=== PATIENT | male | born 1985 | race Caucasian/White ===

== ENCOUNTER 2018-05-04 19:37 | Emergency (ER) | payer BC ==
[2018-05-04 20:03] VITALS: TEMP 98.5
[2018-05-04] MEDS ORDERED: IPRATROPIUM-ALBUTEROL 3 ML NEB INHALATION STA (20:18)
[2018-05-04] MEDS ORDERED: methylPREDNISolone SOD SUCCI 125 MG/2 ML VIAL IV STA (20:18)
[2018-05-04] MEDS ORDERED: MAGNESIUM SULFATE-D5W PMX 1 GM in DEXTROSE/WATER 1 100ML.BAG IVPB ONE (20:19)
--- NOTE | 2018-05-04 20:33 | ED ---
SOB HPI - General Source: patient, RN notes reviewed Mode of arrival: ambulatory Limitations: no limitations - History of Present Illness MD Complaint: shortness of breath <Chet Palomares - Last Filed: 05/04/18 21:15> <Andrew Schmitz - Last Filed: 05/04/18 22:51> - General Chief Complaint: Shortness of Breath Stated Complaint: SOB Time Seen by Provider: 05/04/18 20:10 - History of Present Illness Initial Comments: This is a 32-year-old male history of childhood asthma states he had shortness of breath or past 3 days. He was seen in outpatient clinic and also later in another clinic and was given several shots of steroids over last several days without resolution. Patient does admit he is a smoker he denies any fevers chills nausea vomiting sweats or other symptoms he does state he has a history of frequent tonsillitis but does not believe that CK is at this time. He denies any chest pain or other symptoms at this time. (Chet Palomares) - Related Data Home Medications Medication Instructions Recorded Confirmed Dextroamphetamine/Amphetamine 30 mg PO DAILY 05/04/18 05/04/18 [Adderall] Imitrex 1 tab PO DAILY PRN 05/04/18 05/04/18 Previous Rx's Medication Instructions Recorded Albuterol Inhaler [Ventolin Hfa 1 - 2 puff INHALATION Q6HR PRN #1 05/04/18 Inhaler] inhaler predniSONE 60 mg PO DAILY #30 tab 05/04/18 Allergies Allergy/AdvReac Type Severity Reaction Status Date / Time amoxicillin Allergy Anaphylaxis Verified 05/04/18 20:23 Review of Systems ROS Other: All systems not noted in ROS Statement are negative. <hCet Palomares - Last Filed: 05/04/18 21:15> ROS Other: All systems not noted in ROS Statement are negative. <Andrew Schmitz - Last Filed: 05/04/18 22:51> ROS Statement: Those systems with pertinent positive or pertinent negative responses have been documented in the HPI. Past Medical History Past Medical History: No Reported History History of Any Multi-Drug Resistant Organisms: None Reported Past Surgical History: No Surgical Hx Reported Past Psychological History: No Psychological Hx Reported Smoking Status: Current every day smoker Past Alcohol Use History: Occasional Past Drug Use History: None Reported <Chet Palomares - Last Filed: 05/04/18 21:15> General Exam Limitations: no limitations General appearance: alert, anxious, in distress Head exam: Present: atraumatic, normocephalic, normal inspection Eye exam: Present: normal appearance, PERRL, EOMI. Absent: scleral icterus, conjunctival injection, periorbital swelling ENT exam: Present: normal exam, mucous membranes moist Neck exam: Present: normal inspection. Absent: tenderness, meningismus, lymphadenopathy Respiratory exam: Present: respiratory distress, wheezes, decreased breath sounds. Absent: rales, rhonchi, stridor Cardiovascular Exam: Present: regular rate, normal rhythm, normal heart sounds. Absent: systolic murmur, diastolic murmur, rubs, gallop, clicks GI/Abdominal exam: Present: soft, normal bowel sounds. Absent: distended, tenderness, guarding, rebound, rigid Extremities exam: Present: normal inspection, full ROM, normal capillary refill. Absent: tenderness, pedal edema, joint swelling, calf tenderness Back exam: Present: normal inspection Neurological exam: Present: alert, oriented X3, CN II-XII intact Psychiatric exam: Present: normal affect, normal mood Skin exam: Present: warm, dry, intact, normal color. Absent: rash <hCet Palomares - Last Filed: 05/04/18 21:15> <Andrew Schmitz - Last Filed: 05/04/18 22:51> - General Exam Comments Initial Comments: This is a well-developed well-nourished awake alert oriented times 3 male (Chet Palomares) Course <Chet Palomares - Last Filed: 05/04/18 21:15> <Andrew Schmitz - Last Filed: 05/04/18 22:51> Vital Signs 05/04/18 05/04/18 05/04/18 20:00 20:32 20:38 Temperature 98.5 F Pulse Rate 88 84 96 Respiratory 18 Rate Blood Pressure 140/86 O2 Sat by Pulse 98 Oximetry 05/04/18 05/04/18 21:31 22:28 Temperature Pulse Rate 72 77 Respiratory 26 H 20 Rate Blood Pressure 126/59 O2 Sat by Pulse 98 98 Oximetry - Reevaluation(s) Reevaluation #1: 05/04/18 21:15 The patient's care will be endorsed to Dr. Schmitz at our shift change. (Chet Palomares) Medical Decision Making - Lab Data Result diagrams: 05/04/18 20:40 05/04/18 20:40 - EKG Data -: EKG Interpreted by Me EKG shows normal: sinus rhythm (Sinus rhythm rate of 84. Interval 140 QRS duration 96 QT since QTC 364/4:30 she'll PVCs.) <Chet Palomares - Last Filed: 05/04/18 21:15> - Lab Data Result diagrams: 05/04/18 20:40 05/04/18 20:40 <Andrew Schmitz - Last Filed: 05/04/18 22:51> - Medical Decision Making I receive this patient has a sign out. I have reevaluated him and at this point his wheezing is only minimal. He is able speak in full sentences and the respiratory pattern is normal without any distress at all. The patient states that he feels much better and would like to go home. I discussed further care and follow-up as well as return parameters. (Andrew Schmitz) - Lab Data Lab Results 05/04/18 05/04/18 05/04/18 Range/Units 20:40 20:40 20:40 WBC 14.9 H (3.8-10.6) k/uL RBC 4.76 (4.30-5.90) m/uL Hgb 14.1 (13.0-17.5) gm/dL Hct 41.6 (39.0-53.0) % MCV 87.3 (80.0-100.0) fL MCH 29.6 (25.0-35.0) pg MCHC 33.8 (31.0-37.0) g/dL RDW 13.3 (11.5-15.5) % Plt Count 247 (150-450) k/uL Neutrophils % 64 % Lymphocytes % 24 % Monocytes % 7 % Eosinophils % 4 % Basophils % 0 % Neutrophils # 9.5 H (1.3-7.7) k/uL Lymphocytes # 3.5 (1.0-4.8) k/uL Monocytes # 1.1 H (0-1.0) k/uL Eosinophils # 0.5 (0-0.7) k/uL Basophils # 0.0 (0-0.2) k/uL PT (9.0-12.0) sec INR (<1.2) APTT (22.0-30.0) sec D-Dimer (<0.60) mg/L FEU Sodium 142 (137-145) mmol/L Potassium 4.0 (3.5-5.1) mmol/L Chloride 105 (98-107) mmol/L Carbon Dioxide 24 (22-30) mmol/L Anion Gap 13 mmol/L BUN 23 H (9-20) mg/dL Creatinine 0.91 (0.66-1.25) mg/dL Est GFR (CKD-EPI)AfAm >90 (>60 ml/min/1.73 sqM) Est GFR (CKD-EPI)NonAf >90 (>60 ml/min/1.73 sqM) Glucose 83 (74-99) mg/dL Plasma Lactic Acid Marcus (0.7-2.0) mmol/L Calcium 8.9 (8.4-10.2) mg/dL Magnesium 1.9 (1.6-2.3) mg/dL Total Bilirubin 0.4 (0.2-1.3) mg/dL AST 34 (17-59) U/L ALT 42 (21-72) U/L Alkaline Phosphatase 72 (38-126) U/L Total Creatine Kinase 95 (55-170) U/L CK-MB (CK-2) 0.8 (0.0-2.4) ng/mL CK-MB (CK-2) Rel Index 0.8 Troponin I <0.012 (0.000-0.034) ng/mL NT-Pro-B Natriuret Pep pg/mL Total Protein 6.8 (6.3-8.2) g/dL Albumin 3.9 (3.5-5.0) g/dL 05/04/18 05/04/18 05/04/18 Range/Units 20:40 20:40 20:40 WBC (3.8-10.6) k/uL RBC (4.30-5.90) m/uL Hgb (13.0-17.5) gm/dL Hct (39.0-53.0) % MCV (80.0-100.0) fL MCH (25.0-35.0) pg MCHC (31.0-37.0) g/dL RDW (11.5-15.5) % Plt Count (150-450) k/uL Neutrophils % % Lymphocytes % % Monocytes % % Eosinophils % % Basophils % % Neutrophils # (1.3-7.7) k/uL Lymphocytes # (1.0-4.8) k/uL Monocytes # (0-1.0) k/uL Eosinophils # (0-0.7) k/uL Basophils # (0-0.2) k/uL PT 10.1 (9.0-12.0) sec INR 1.0 (<1.2) APTT 22.9 (22.0-30.0) sec D-Dimer 0.24 (<0.60) mg/L FEU Sodium (137-145) mmol/L Potassium (3.5-5.1) mmol/L Chloride (98-107) mmol/L Carbon Dioxide (22-30) mmol/L Anion Gap mmol/L BUN (9-20) mg/dL Creatinine (0.66-1.25) mg/dL Est GFR (CKD-EPI)AfAm (>60 ml/min/1.73 sqM) Est GFR (CKD-EPI)NonAf (>60 ml/min/1.73 sqM) Glucose (74-99) mg/dL Plasma Lactic Acid Marcus 1.1 (0.7-2.0) mmol/L Calcium (8.4-10.2) mg/dL Magnesium (1.6-2.3) mg/dL Total Bilirubin (0.2-1.3) mg/dL AST (17-59) U/L ALT (21-72) U/L Alkaline Phosphatase (38-126) U/L Total Creatine Kinase (55-170) U/L CK-MB (CK-2) (0.0-2.4) ng/mL CK-MB (CK-2) Rel Index Troponin I (0.000-0.034) ng/mL NT-Pro-B Natriuret Pep 105 pg/mL Total Protein (6.3-8.2) g/dL Albumin (3.5-5.0) g/dL Disposition <Chet Palomares - Last Filed: 05/04/18 21:15> Is patient prescribed a controlled substance at d/c from ED?: No <Andrew Schmitz - Last Filed: 05/04/18 22:51> Clinical Impression: Asthma exacerbation Disposition: HOME SELF-CARE Condition: Good Instructions: Asthma (ED) Prescriptions: Albuterol Inhaler [Ventolin Hfa Inhaler] 1 - 2 puff INHALATION Q6HR PRN #1 inhaler PRN Reason: Wheezing predniSONE 60 mg PO DAILY #30 tab Referrals: None,Stated [Primary Care Provider] - 1-2 days Juliet Menjivar MD [REFERRING] - 1-2 days
[2018-05-04 20:55] LABS: Basophils % (A) 0 %; Eosinophils # (A) 0.5 k/uL (0-0.7); Eosinophils % (A) 4 %; HCT 41.6 % (39.0-53.0); HGB 14.1 gm/dL (13.0-17.5); Lymphocytes # (A) 3.5 k/uL (1.0-4.8); Lymphocytes % (A) 24 %; MCH 29.6 pg (25.0-35.0); MCHC 33.8 g/dL (31.0-37.0); MCV 87.3 fL (80.0-100.0); Mean Platelet Volume 7.6; Monocytes # (A) 1.1 k/uL (0-1.0); Monocytes % (A) 7 %; Neutrophils # (A) 9.5 k/uL (1.3-7.7); Neutrophils % (A) 64 %; Platelet Count 247 k/uL (150-450); RBC 4.76 m/uL (4.30-5.90); RDW 13.3 % (11.5-15.5); WBC 14.9 k/uL (3.8-10.6)
[2018-05-04 21:05] LABS: ALT 42 U/L (21-72); AST 34 U/L (17-59); Albumin 3.9 g/dL (3.5-5.0); Alkaline Phosphatase 72 U/L (38-126); Anion Gap 13 mmol/L; Blood Urea Nitrogen 23 mg/dL (9-20); Calcium 8.9 mg/dL (8.4-10.2); Carbon Dioxide 24 mmol/L (22-30); Chloride 105 mmol/L (98-107); Glucose 83 mg/dL (74-99); Magnesium 1.9 mg/dL (1.6-2.3); Sodium 142 mmol/L (137-145); Total Bilirubin 0.4 mg/dL (0.2-1.3); Total Protein 6.8 g/dL (6.3-8.2)
[2018-05-04 21:08] LABS: D-Dimer 0.24 mg/L FEU (<0.60); Partial Thromboplastin Time 22.9 sec (22.0-30.0); Prothrombin Time 10.1 sec (9.0-12.0)
[2018-05-04 21:21] LABS: Creatine Kinase 95 U/L (55-170)
[2018-05-04 21:34] LABS: Creatine Kinase MB 0.8 ng/mL (0.0-2.4); Troponin I <0.012 ng/mL (0.000-0.034)
[2018-05-04 23:09] VITALS: BP 121/70; PULSE 95; RESP 16
== END 2018-05-04 23:10 | disposition home or self-care (01) ==
LOC: EC 19:37
DX: J45.901 Unspecified asthma with (acute) exacerbation (principal); F17.200 Nicotine dependence, unspecified, uncomplicated; Z79.899 Other long term (current) drug therapy; Z88.0 Allergy status to penicillin
CPT/HCPCS: 36415; 94640; 93005; 85379; 83880; 80053; 82550; 82553; 83605; 83735; 84484; 85025; 85610; 85730; 87040; 99285; 96365; 96366; 96375; J2930; J3475

== ENCOUNTER 2019-11-07 23:14 | Emergency (ER) | payer BC ==
[2019-11-07] MEDS ORDERED: DEXAMETHASONE SOD PHOSPHATE 10 MG/ML 1 ML VIAL IM STA (23:27)
[2019-11-07] MEDS ORDERED: IPRATROPIUM 0.5 MG/2.5 ML NEBU INHALATION STA (23:27)
[2019-11-07] MEDS ORDERED: KETOROLAC 30 MG/ML 1 ML VIAL IM STA (23:27)
[2019-11-07] MEDS ORDERED: guaiFENesin-DM 600/30MG 1 EACH TAB.ER.12H PO ONE (23:30)
--- NOTE | 2019-11-07 23:58 | XR ---
EXAMINATION TYPE: XR chest 2V DATE OF EXAM: 11/07/2019 COMPARISON: 05/04/2018 HISTORY: Cough TECHNIQUE: FINDINGS: Heart and mediastinum appear normal. Lungs are clear of consolidation. There are no hilar m asses. Pulmonary vascularity is normal. Bony thorax appears normal. IMPRESSION: Normal chest. No change.
--- NOTE | 2019-11-08 00:20 | ED ---
URI HPI - General Chief Complaint: Upper Respiratory Infection Stated Complaint: Diff Breathing Time Seen by Provider: 11/07/19 23:19 Source: patient Mode of arrival: ambulatory Limitations: no limitations - History of Present Illness Initial Comments: 34-year-old male patient presents to the emergency department today for evaluation of sore throat, cough, shortness of breath. Patient states his been sick for the last 2 days. Patient states he has painful swallowing. States it feels like his tonsils are swollen. He denies any unilateral pain. Denies fevers but states he has been chilled. States he has had a cough. Cough is nonproductive. States he has a history of asthma. He denies any nasal congestion or drainage. Patient denies any recent rash, chest pain, abdominal pain, nausea, vomiting, diarrhea, constipation, back pain, numbness, tingling, dizziness, weakness, hematuria, dysuria, urinary urgency, urinary frequency, headache, visual changes, or any other complaints. - Related Data Home Medications Medication Instructions Recorded Confirmed Dextroamphetamine/Amphetamine 30 mg PO DAILY 05/04/18 05/04/18 [Adderall] Imitrex 1 tab PO DAILY PRN 05/04/18 05/04/18 Previous Rx's Medication Instructions Recorded Albuterol Inhaler [Ventolin Hfa 1 - 2 puff INHALATION Q6HR PRN #1 05/04/18 Inhaler] inhaler predniSONE 60 mg PO DAILY #30 tab 05/04/18 Albuterol Sulfate [Proair Hfa] 1 - 2 puff INHALATION Q6HR PRN #1 11/08/19 inhaler guaiFENesin-DM 600/30MG [Mucinex 2 each PO Q12HR #20 tab.er.12h 11/08/19 Dm] predniSONE 50 mg PO DAILY #5 tablet 11/08/19 Allergies Allergy/AdvReac Type Severity Reaction Status Date / Time amoxicillin Allergy Anaphylaxis Verified 11/07/19 23:17 Review of Systems ROS Statement: Those systems with pertinent positive or pertinent negative responses have been documented in the HPI. ROS Other: All systems not noted in ROS Statement are negative. Past Medical History Past Medical History: No Reported History History of Any Multi-Drug Resistant Organisms: None Reported Past Surgical History: No Surgical Hx Reported Past Psychological History: No Psychological Hx Reported Smoking Status: Former smoker Past Alcohol Use History: Occasional Past Drug Use History: None Reported General Exam Limitations: no limitations General appearance: alert, in no apparent distress, anxious, other (This is a well-developed, well-nourished adult male patient in no acute distress. Vital signs upon presentation are temperature 98.7F, pulse 96, respirations 20, blood pressure 141/95, pulse ox 97% on room air.) ENT exam: Present: mucous membranes moist. Absent: normal oropharynx (Pharyngeal erythema. No tonsillar exudate or swelling.) Respiratory exam: Present: wheezes (Faint expiratory wheezing noted in the posterior lung rosenberg.). Absent: normal lung sounds bilaterally, respiratory distress, rales, rhonchi, stridor Cardiovascular Exam: Present: regular rate, normal rhythm, normal heart sounds. Absent: systolic murmur, diastolic murmur, rubs, gallop, clicks GI/Abdominal exam: Present: soft, normal bowel sounds. Absent: distended, tenderness, guarding, rebound, rigid Neurological exam: Present: alert, oriented X3, CN II-XII intact Psychiatric exam: Present: normal affect, normal mood Skin exam: Present: warm, dry, intact, normal color. Absent: rash Course Vital Signs 11/07/19 11/07/19 11/07/19 23:15 23:50 23:58 Temperature 98.7 F Pulse Rate 96 96 88 Respiratory 20 Rate Blood Pressure 141/95 O2 Sat by Pulse 97 Oximetry 11/08/19 00:47 Temperature 97.9 F Pulse Rate 94 Respiratory 18 Rate Blood Pressure 135/69 O2 Sat by Pulse 99 Oximetry Medical Decision Making - Medical Decision Making 34-year-old male patient presents to the emergency department today for evaluation of cough, congestion, sore throat. Physical examination did reveal faint expiratory wheezing. Chest x-ray is unremarkable. Strep and influenza testing were negative. Patient was given steroids and anti-inflammatory medication. Also given Mucinex DM for control of cough. Symptoms are consistent with acute bronchitis and viral pharyngitis. He'll be discharged with prescriptions for prednisone, Mucinex, and Pro Air inhaler. He is instructed to follow-up with his primary care physician for recheck in 1-2 days. Return parameters were discussed in detail. He verbalizes understanding and agrees with this plan. - Lab Data Lab Results 11/07/19 Range/Units 23:25 Influenza Type A RNA Not Detected (Not Detectd) Influenza Type B (PCR) Not Detected (Not Detectd) Group A Strep Rapid Negative (Negative) - Radiology Data Radiology results: report reviewed, image reviewed Two-view x-ray of the chest is obtained. Report is reviewed in its entirety. Impression by Dr. Gooden meningismus normal chest. No change. Disposition Clinical Impression: Acute bronchitis, Viral pharyngitis Disposition: HOME SELF-CARE Condition: Good Instructions (If sedation given, give patient instructions): Pharyngitis (ED), Acute Bronchitis (ED) Additional Instructions: Take Tylenol Motrin for pain control. Use inhaler every 4-6 hours as needed for shortness of breath. Complete steroid prescription and full. Use Mucinex DM for control of cough. Follow-up through primary care physician for recheck in 1-2 days. Return to the emergency department immediately for any new, worsening, or concerning symptoms. Prescriptions: guaiFENesin-DM 600/30MG [Mucinex Dm] 2 each PO Q12HR #20 tab.er.12h predniSONE 50 mg PO DAILY #5 tablet Albuterol Sulfate [Proair Hfa] 1 - 2 puff INHALATION Q6HR PRN #1 inhaler PRN Reason: Shortness Of Breath Is patient prescribed a controlled substance at d/c from ED?: No Referrals: Lukas Huston MD [Primary Care Provider] - 1-2 days Time of Disposition: 00:19
[2019-11-08 00:52] VITALS: BP 135/69; PULSE 94; RESP 18; TEMP 97.9
== END 2019-11-08 00:47 | disposition home or self-care (01) ==
LOC: EC 23:14
DX: J20.9 Acute bronchitis, unspecified (principal); J02.9 Acute pharyngitis, unspecified; Z87.09 Personal history of other diseases of the respiratory system; Z87.891 Personal history of nicotine dependence; Z79.899 Other long term (current) drug therapy; Z88.0 Allergy status to penicillin
CPT/HCPCS: 94640; 87081; 87430; 87502; 71046; 99285; 96372 ×2; J1100; J1885

== ENCOUNTER 2019-11-10 13:45 | Emergency (ER) | payer BC ==
[2019-11-10 13:48] VITALS: TEMP 97.7
[2019-11-10] MEDS ORDERED: IPRATROPIUM-ALBUTEROL 3 ML NEB INHALATION STA (14:09)
[2019-11-10] MEDS ORDERED: methylPREDNISolone SOD SUCCI 125 MG/2 ML VIAL IV STA (14:19)
[2019-11-10 14:43] LABS: Basophils # (A) 0.1 k/uL (0-0.2); Basophils % (A) 0 %; Eosinophils # (A) 0.1 k/uL (0-0.7); Eosinophils % (A) 1 %; HCT 43.8 % (39.0-53.0); HGB 14.4 gm/dL (13.0-17.5); Lymphocytes # (A) 1.5 k/uL (1.0-4.8); Lymphocytes % (A) 9 %; MCH 28.8 pg (25.0-35.0); MCHC 32.9 g/dL (31.0-37.0); MCV 87.4 fL (80.0-100.0); Mean Platelet Volume 7.7; Monocytes # (A) 0.5 k/uL (0-1.0); Monocytes % (A) 3 %; Neutrophils # (A) 13.6 k/uL (1.3-7.7); Neutrophils % (A) 86 %; Platelet Count 327 k/uL (150-450); RBC 5.01 m/uL (4.30-5.90); RDW 13.4 % (11.5-15.5); WBC 15.8 k/uL (3.8-10.6)
[2019-11-10 14:51] LABS: AST 73 U/L (17-59); African American GFR (CKD) >90 (>60 ml/min/1.73 sqM); Albumin 4.4 g/dL (3.5-5.0); Alkaline Phosphatase 83 U/L (38-126); Anion Gap 17 mmol/L; Blood Urea Nitrogen 31 mg/dL (9-20); Calcium 9.7 mg/dL (8.4-10.2); Carbon Dioxide 16 mmol/L (22-30); Chloride 108 mmol/L (98-107); Glucose 179 mg/dL (74-99); Non-African American GFR(CKD) >90 (>60 ml/min/1.73 sqM); Potassium 3.2 mmol/L (3.5-5.1); Sodium 141 mmol/L (137-145); Total Bilirubin 0.4 mg/dL (0.2-1.3); Total Protein 7.7 g/dL (6.3-8.2)
--- NOTE | 2019-11-10 14:51 | XR ---
EXAMINATION TYPE: XR chest 2V DATE OF EXAM: 11/10/2019 COMPARISON: 11/07/2019 HISTORY: Difficulty breathing TECHNIQUE: FINDINGS: Heart and mediastinum are normal. Lungs are clear of consolidation. There is slight coarsen ing of the interstitial markings. There is no pleural effusion. Bony thorax is intact. IMPRESSION: Mild coarsening of the lung markings unchanged. No pulmonary consolidation or heart failu re.
[2019-11-10 14:57] LABS: ALT 43 U/L (4-49)
--- NOTE | 2019-11-10 14:57 | ED ---
SOB HPI - General Chief Complaint: Shortness of Breath Stated Complaint: TAHIR Time Seen by Provider: 11/10/19 14:04 Source: patient Mode of arrival: ambulatory Limitations: no limitations - History of Present Illness Initial Comments: Patient is a 34-year-old male presenting to emergency Department with complaints of difficulty in breathing. Patient states he was seen here 2 days ago for sore throat and wheezing. Patient was given steroids and inhaler however he feels his symptoms are progressing. He is having increase in wheezing and difficulty settling down his breathing. Patient also admits to chest tightness. He denies chest pain, abdominal pain, nausea, vomiting. He does still admit to mild sore throat. He does have history of mild asthma. No other pertinent past medical history. He has no other complaints at this time. Upon arrival to the ER, patient was tachycardia at 117, respiratory 28, afebrile and blood pressure normal. On the percent on room air. - Related Data Home Medications Medication Instructions Recorded Confirmed Dextroamphetamine/Amphetamine 30 mg PO DAILY 05/04/18 05/04/18 [Adderall] Imitrex 1 tab PO DAILY PRN 05/04/18 05/04/18 Previous Rx's Medication Instructions Recorded Albuterol Inhaler [Ventolin Hfa 1 - 2 puff INHALATION Q6HR PRN #1 05/04/18 Inhaler] inhaler predniSONE 60 mg PO DAILY #30 tab 05/04/18 Albuterol Sulfate [Proair Hfa] 1 - 2 puff INHALATION Q6HR PRN #1 11/08/19 inhaler guaiFENesin-DM 600/30MG [Mucinex 2 each PO Q12HR #20 tab.er.12h 11/08/19 Dm] predniSONE 50 mg PO DAILY #5 tablet 11/08/19 Ipratropium-Albuterol Nebulize 3 ml INHALATION QID #1 box 11/10/19 [Duoneb 0.5 mg-3 mg/3 ml Soln] Allergies Allergy/AdvReac Type Severity Reaction Status Date / Time amoxicillin Allergy Anaphylaxis Verified 11/10/19 13:46 Review of Systems ROS Statement: Those systems with pertinent positive or pertinent negative responses have been documented in the HPI. ROS Other: All systems not noted in ROS Statement are negative. Past Medical History Past Medical History: No Reported History History of Any Multi-Drug Resistant Organisms: None Reported Past Surgical History: No Surgical Hx Reported Past Psychological History: No Psychological Hx Reported Smoking Status: Former smoker Past Alcohol Use History: Occasional Past Drug Use History: None Reported General Exam - General Exam Comments Initial Comments: GENERAL: Patient is wheezing, breathing fast, slightly diaphoretic. HEAD: Atraumatic, normocephalic. EYES: Pupils equal round and reactive to light, extraocular movements intact, sclera anicteric, conjunctiva are normal. ENT: TMs normal, nares patent, oropharynx slightly erythematous, mild enlargement of bilateral tonsils, no exudate, Moist mucous membranes. NECK: Normal range of motion, supple without lymphadenopathy or JVD. LUNGS: Bilateral expiratory wheezes scattered throughout, no rales or rhonchi. HEART: Tachycardia rate and rhythm without murmurs, rubs or gallops. ABDOMEN: Soft, nontender, normoactive bowel sounds. No guarding, no rebound. No masses appreciated. : Deferred EXTREMITIES: Normal range of motion, no pitting or edema. No clubbing or cyanosis. NEUROLOGICAL: Normal speech, normal gait. PSYCH: Normal mood, normal affect. SKIN: Warm, Dry, normal turgor, no rashes or lesions noted. Limitations: no limitations Course Vital Signs 11/10/19 11/10/19 11/10/19 13:46 13:48 14:12 Temperature 97.7 F Pulse Rate 117 H 116 H Respiratory 28 H 20 Rate Blood Pressure 127/77 O2 Sat by Pulse 100 Oximetry 11/10/19 11/10/19 14:22 14:32 Temperature Pulse Rate 120 H 100 Respiratory 26 H Rate Blood Pressure O2 Sat by Pulse 95 Oximetry Medical Decision Making - Medical Decision Making Patient is a 34-year-old male presenting with shortness of breath 2 days. Patient was seen in the ER 2 days ago for same complaint. Labs and imaging were reviewed from before and all were normal. Patient was discharged with steroids and inhaler. Patient is afebrile on arrival, slightly tachycardia. Patient was given breathing treatment with improvement of symptoms. Laboratory shows slight leukocytosis likely secondary to steroids. D-dimer is normal. Troponin is normal. EKG shows no acute changes. Patient's potassium was slightly low at 3.2. Influenza is negative. I discussed these findings with the patient. This is most likely bronchitis. Patient will continue with inhaler at home as well as steroids. Patient was given IV steroids today as well. Patient will be given a prescription for nebulizer treatments at home. He is stable for discharge at this time. Return parameters were discussed with the patient and he verbalized understanding. Case discussed with Dr. Palomares. - Lab Data Result diagrams: 11/10/19 14:11 11/10/19 14:11 Lab Results 11/10/19 11/10/19 11/10/19 Range/Units 14:11 14:11 14:11 WBC 15.8 H (3.8-10.6) k/uL RBC 5.01 (4.30-5.90) m/uL Hgb 14.4 (13.0-17.5) gm/dL Hct 43.8 (39.0-53.0) % MCV 87.4 (80.0-100.0) fL MCH 28.8 (25.0-35.0) pg MCHC 32.9 (31.0-37.0) g/dL RDW 13.4 (11.5-15.5) % Plt Count 327 (150-450) k/uL Neutrophils % 86 % Lymphocytes % 9 % Monocytes % 3 % Eosinophils % 1 % Basophils % 0 % Neutrophils # 13.6 H (1.3-7.7) k/uL Lymphocytes # 1.5 (1.0-4.8) k/uL Monocytes # 0.5 (0-1.0) k/uL Eosinophils # 0.1 (0-0.7) k/uL Basophils # 0.1 (0-0.2) k/uL D-Dimer 0.21 (<0.60) mg/L FEU Sodium 141 (137-145) mmol/L Potassium 3.2 L (3.5-5.1) mmol/L Chloride 108 H (98-107) mmol/L Carbon Dioxide 16 L (22-30) mmol/L Anion Gap 17 mmol/L BUN 31 H (9-20) mg/dL Creatinine 0.96 (0.66-1.25) mg/dL Est GFR (CKD-EPI)AfAm >90 (>60 ml/min/1.73 sqM) Est GFR (CKD-EPI)NonAf >90 (>60 ml/min/1.73 sqM) Glucose 179 H (74-99) mg/dL Calcium 9.7 (8.4-10.2) mg/dL Total Bilirubin 0.4 (0.2-1.3) mg/dL AST 73 H (17-59) U/L ALT 43 (4-49) U/L Alkaline Phosphatase 83 (38-126) U/L Troponin I (0.000-0.034) ng/mL Total Protein 7.7 (6.3-8.2) g/dL Albumin 4.4 (3.5-5.0) g/dL Influenza Type A RNA (Not Detectd) Influenza Type B (PCR) (Not Detectd) 11/10/19 11/10/19 Range/Units 14:11 14:31 WBC (3.8-10.6) k/uL RBC (4.30-5.90) m/uL Hgb (13.0-17.5) gm/dL Hct (39.0-53.0) % MCV (80.0-100.0) fL MCH (25.0-35.0) pg MCHC (31.0-37.0) g/dL RDW (11.5-15.5) % Plt Count (150-450) k/uL Neutrophils % % Lymphocytes % % Monocytes % % Eosinophils % % Basophils % % Neutrophils # (1.3-7.7) k/uL Lymphocytes # (1.0-4.8) k/uL Monocytes # (0-1.0) k/uL Eosinophils # (0-0.7) k/uL Basophils # (0-0.2) k/uL D-Dimer (<0.60) mg/L FEU Sodium (137-145) mmol/L Potassium (3.5-5.1) mmol/L Chloride (98-107) mmol/L Carbon Dioxide (22-30) mmol/L Anion Gap mmol/L BUN (9-20) mg/dL Creatinine (0.66-1.25) mg/dL Est GFR (CKD-EPI)AfAm (>60 ml/min/1.73 sqM) Est GFR (CKD-EPI)NonAf (>60 ml/min/1.73 sqM) Glucose (74-99) mg/dL Calcium (8.4-10.2) mg/dL Total Bilirubin (0.2-1.3) mg/dL AST (17-59) U/L ALT (4-49) U/L Alkaline Phosphatase (38-126) U/L Troponin I <0.012 (0.000-0.034) ng/mL Total Protein (6.3-8.2) g/dL Albumin (3.5-5.0) g/dL Influenza Type A RNA Not Detected (Not Detectd) Influenza Type B (PCR) Not Detected (Not Detectd) - EKG Data EKG Comments: Ventricular rate 93, SC interval 150, QTC 452. Sinus rhythm with marked sinus arrhythmia. No acute ST segment changes. Disposition Clinical Impression: Acute bronchitis Disposition: HOME SELF-CARE Condition: Stable Instructions (If sedation given, give patient instructions): Acute Bronchitis (ED) Additional Instructions: Please return to the Emergency Department if symptoms worsen or any other concerns. Continue with medications as prescribed. Follow-up with PCP on Tuesday. Trial of cool air humidifier and sleeping upright. Prescriptions: Ipratropium-Albuterol Nebulize [Duoneb 0.5 mg-3 mg/3 ml Soln] 3 ml INHALATION QID #1 box Is patient prescribed a controlled substance at d/c from ED?: No Referrals: Lukas Huston MD [Primary Care Provider] - 1-2 days
[2019-11-10 15:58] VITALS: BP 132/68; PULSE 86; RESP 20
== END 2019-11-10 15:58 | disposition home or self-care (01) ==
LOC: EC 13:45
DX: J20.9 Acute bronchitis, unspecified (principal); D72.829 Elevated white blood cell count, unspecified; E87.6 Hypokalemia; Z87.891 Personal history of nicotine dependence; Z79.899 Other long term (current) drug therapy; Z88.0 Allergy status to penicillin
CPT/HCPCS: 36415; 94640; 93005; 85379; 80053; 84484; 85025; 87502; 71046; 99285; 96374; J2930